=== PATIENT | female | born 1995 | race Two or more races ===

== ENCOUNTER 2018-10-05 11:39 | Emergency (ER) | payer SELFPAY ==
[~2018-10-05] VITALS: Ht 167.6 cm; Wt 59.0 kg
[2018-10-05 11:45] VITALS: Ht 167.6 cm; Wt 59.0 kg
[2018-10-05] MEDS ORDERED: IBUP-1542 PO (13:48)
[2018-10-05] MEDS ORDERED: CEPH-443 PO (13:48)
--- NOTE | 2018-10-05 14:11 | ERD ---
ER Documentation Chief Complaint Chief Complaint Complains of abdominal pain x3 days HPI This is a 22-year-old female with no past medical history the presents to the emergency department complaining of suprapubic cramping that is been present for the past 3 days. The patient indicates the pain is 8 out of 10 in intensity. She is been expressing frequency urgency and dysuria. She went to her primary care physician 2 days ago for evaluation and had blood work performed. She has not received the results. She indicates that she also has missed her menstrual cycle this past month. She states she is normally very regular with her menstrual cycles. She is currently sexually active with one partner being her fianc and denies any abnormal urethral discharge. She said she experienced a tactile fever with shaking and chills in the past 24 hours but has not taken any analgesic or antipyretics. ROS All systems reviewed and are negative except as per history of present illness. Medications Home Meds Active Scripts Cephalexin* (Keflex*) 500 Mg Capsule, 500 MG PO QID for 10 Days, CAP Prov:KAREEM JACKSON MD 10/05/18 Ibuprofen* (Motrin*) 600 Mg Tab, 600 MG PO Q8, #30 TAB Prov:KAREEM JACKSON MD 10/05/18 Allergies Allergies: Coded Allergies: No Known Allergy (Unverified , 10/05/18) PMhx/Soc Medical and Surgical Hx: pt denies Medical Hx, pt denies Surgical Hx History of Surgery: No Anesthesia Reaction: No Hx Neurological Disorder: No Hx Respiratory Disorders: No Hx Cardiac Disorders: No Hx Psychiatric Problems: No Hx Miscellaneous Medical Probl: No Hx Alcohol Use: No Hx Substance Use: No Hx Tobacco Use: No Smoking Status: Never smoker Physical Exam Vitals Vital Signs Date Temp Pulse Resp B/P (MAP) Pulse Ox O2 O2 Flow FiO2 Time Delivery Rate 10/05/18 98.1 89 20 120/70 96 11:45 (87) Physical Exam Constitutional:Well-developed. Well-nourished. HEENT:Normocephalic. Atraumatic.Pupils were equal round reactive to light. Moist mucous membranes.No tonsillar exudates. Neck: No nuchal rigidity. No lymphadenopathy. No posterior cervical spine tenderness or step-offs. Respiratory: Not using accessory muscles of respiration.Lungs were clear to auscultation bilaterally. No rhonchi. No rales. No wheezing. Cardiovascular: Regular rate regular rhythm.No murmurs. No rubs were appreciated.S1, S2 normal. Distal pulses are palpable 2+ bilaterally. GI: Abdomen was soft. Suprapubic tenderness. Non Distended. No pulsatile abdominal masses or bruits. No rebound. No guarding. Bowel sounds were present and normal. Muscle skeletal: Full range of motion of both the upper and lower extremities bilaterally.Normal muscle tone.No assymetrical calf tenderness or swelling. Skin: No petechia, no purpura. No lesions on the palms or the soles of the feet. No maculopapular rash. NEURO: Patient was alert, awake, orientated x3.No facial droop. Gait observed and normal with no ataxia.Speech had regular rate and rhythm. No focal neurological deficits. Result Diagram: 10/05/18 1259 10/05/18 1259 Results 24 hrs Laboratory Tests Test 10/05/18 12:40 10/05/18 12:54 10/05/18 12:59 Urine Color YELLOW Urine Clarity CLOUDY Urine pH 6.0 Urine Specific [place] 1.031 Urine Ketones 1+ mg/dL Urine Nitrite POSITIVE mg/dL Urine Bilirubin NEGATIVE mg/dL Urine Urobilinogen 1+ mg/dL Urine Leukocyte Esterase 2+ Evans/ul Urine Microscopic RBC 14 /HPF Urine Microscopic WBC 18 /HPF Urine Squamous Epithelial Cells MODERATE /HPF Urine Bacteria FEW /HPF Urine Mucus MODERATE /HPF Urine Hemoglobin NEGATIVE mg/dL Urine Glucose NEGATIVE mg/dL Urine Total Protein 1+ mg/dl POC Beta HCG, Qualitative NEGATIVE White Blood Count 10.7 10^3/ul Red Blood Count 4.80 10^6/ul Hemoglobin 15.1 g/dl Hematocrit 42.7 % Mean Corpuscular Volume 89.0 fl Mean Corpuscular Hemoglobin 31.5 pg Mean Corpuscular 35.4 g/dl Hemoglobin Concent Red Cell Distribution Width 11.9 % Platelet Count 284 10^3/UL Mean Platelet Volume 10.7 fl Immature Granulocytes % 0.300 % Neutrophils % 72.9 % Lymphocytes % 20.4 % Monocytes % 5.6 % Eosinophils % 0.4 % Basophils % 0.4 % Nucleated Red Blood Cells % 0.0 /100WBC Immature Granulocytes # 0.030 10^3/ul Neutrophils # 7.8 10^3/ul Lymphocytes # 2.2 10^3/ul Monocytes # 0.6 10^3/ul Eosinophils # 0.0 10^3/ul Basophils # 0.0 10^3/ul Nucleated Red Blood Cells # 0.0 10^3/ul Sodium Level 142 mmol/L Potassium Level 4.6 mmol/L Chloride Level 104 mmol/L Carbon Dioxide Level 25 mmol/L Anion Gap 13 Blood Urea Nitrogen 18 mg/dl Creatinine 0.64 mg/dl Est Glomerular Filtrat > 60 mL/min Rate mL/min Glucose Level 92 mg/dl Calcium Level 9.8 mg/dl Beta HCG, Quantitative < 2.4 mIU/ml Procedures/MDM This is a very pleasant 22-year-old female presented to the emergency department with suprapubic tenderness. The patient is currently sexually active but had no risk factors for STD exposure she states she follows up regularly with her primary care physician and has only been sexually active with one partner for the past 5 years. She had a recent Pap smear that was found to be normal and STD checking that was also normal. I did obtain ancillary laboratory and there is no leukocytosis no electrolyte abnormalities but the patient did have a significant urinary tract infection. A pelvic ultrasound was performed and reviewed by myself the radiologist. There is no evidence of ovarian torsion or ectopic . Both urine and serum test were negative. The patient felt comfortable being discharged home with Motrin and Keflex to treat her urinary tract infection. The patient was discharged home in fair condition. They were instructed to return to the emergency department at any time if there was any worsening of their condition. The patient stated they would follow up with their PCP in the next 24-48 hours to initiate a suitable medication regimen under the care of their PCP as well as to allow their PCP to monitor any drug reactions. The patient was discharged home with prescriptions after they gave informed consent to the new medication. They were also fully informed by myself on the adverse effects and adverse drug interactions in order to provide adequate safeguards to prevent possible adverse reactions to medications. Departure Diagnosis: Primary Impression: Pyelonephritis Condition: Fair Patient Instructions: Pyelonephritis, Female (Adult) KAREEM JACKSON MD Oct 05, 2018 14:11
== END 2018-10-05 14:07 | disposition home or self-care (01) ==
LOC: FTE 11:39
DX: N12 Tubulo-interstitial nephritis, not specified as acute or chronic (principal); R10.2 Pelvic and perineal pain
CPT/HCPCS: 76856; 80048; 81001; 81025; 84702; 85025; 86850; 86900; 86901; 87086

== ENCOUNTER 2019-03-06 17:45 | Emergency (ER) | payer SELFPAY ==
[~2019-03-06] VITALS: Ht 157.5 cm; Wt 64.5 kg
[~2019-03-06 17:45] MED LIST: CEPH-443 PO; IBUP-1542 PO
[2019-03-06 17:50] VITALS: Ht 157.5 cm; Wt 64.5 kg
--- NOTE | 2019-03-06 20:22 | ERD ---
ER Documentation Chief Complaint Chief Complaint PELVIC PAIN DENIES VAG BLEED 9 WEEKS PREG HPI 23-year-old female presents with intermittent lower pelvic pain for last 2 days. She had some bleeding initially 2 weeks ago and was told that her appeared normal. She had a follow-up ultrasound last week and was told that the y only saw sac. She does not recall given any follow-up. She is here for second opinion for some intermittent pain. She is a G1 para 0. ROS All systems reviewed and are negative except as per history of present illness. Medications Home Meds Active Scripts Cephalexin* (Keflex*) 500 Mg Capsule, 500 MG PO QID for 10 Days, CAP Prov:KAREEM JACKSON MD 10/05/18 Ibuprofen* (Motrin*) 600 Mg Tab, 600 MG PO Q8, #30 TAB Prov:KAREEM JACKSON MD 10/05/18 Allergies Allergies: Coded Allergies: No Known Allergy (Unverified , 10/05/18) PMhx/Soc History of Surgery: No Anesthesia Reaction: No Hx Neurological Disorder: No Hx Respiratory Disorders: No Hx Cardiac Disorders: No Hx Psychiatric Problems: No Hx Miscellaneous Medical Probl: No Hx Alcohol Use: No Hx Substance Use: No Hx Tobacco Use: No FmHx Family History: No diabetes, No coronary disease, No other Physical Exam Vitals Vital Signs Date Temp Pulse Resp B/P (MAP) Pulse Ox O2 O2 Flow FiO2 Time Delivery Rate 03/06/19 98.1 71 18 112/60 99 17:50 (77) Physical Exam Const: No acute distress Head: Atraumatic Eyes: Normal Conjunctiva ENT: Normal External Ears, Nose and Mouth. Neck: Full range of motion. No meningismus. Resp: Clear to auscultation bilaterally Cardio: Regular rate and rhythm, no murmurs Abd: Soft, non tender, non distended. Normal bowel sounds Skin: No petechiae or rashes Back: No midline or flank tenderness Ext: No cyanosis, or edema Neur: Awake and alert Psych: Normal Mood and Affect Result Diagram: 03/06/19 8946 Results 24 hrs Laboratory Tests Test 03/06/19 18:46 White Blood Count 8.7 10^3/ul Red Blood Count 4.36 10^6/ul Hemoglobin 13.7 g/dl Hematocrit 38.5 % Mean Corpuscular Volume 88.3 fl Mean Corpuscular Hemoglobin 31.4 pg Mean Corpuscular Hemoglobin Concent 35.6 g/dl Red Cell Distribution Width 11.6 % Platelet Count 291 10^3/UL Mean Platelet Volume 10.1 fl Immature Granulocytes % 0.500 % Neutrophils % 63.7 % Lymphocytes % 27.2 % Monocytes % 6.4 % Eosinophils % 1.6 % Basophils % 0.6 % Nucleated Red Blood Cells % 0.0 /100WBC Immature Granulocytes # 0.040 10^3/ul Neutrophils # 5.5 10^3/ul Lymphocytes # 2.4 10^3/ul Monocytes # 0.6 10^3/ul Eosinophils # 0.1 10^3/ul Basophils # 0.1 10^3/ul Nucleated Red Blood Cells # 0.0 10^3/ul Urine Color YELLOW Urine Clarity SLIGHTLY CLOUDY Urine pH 8.0 Urine Specific [place] 1.006 Urine Ketones NEGATIVE mg/dL Urine Nitrite NEGATIVE mg/dL Urine Bilirubin NEGATIVE mg/dL Urine Urobilinogen NEGATIVE mg/dL Urine Leukocyte Esterase TRACE Evans/ul Urine Microscopic RBC 2 /HPF Urine Microscopic WBC 3 /HPF Urine Squamous Epithelial Cells FEW /HPF Urine Hemoglobin NEGATIVE mg/dL Urine Glucose NEGATIVE mg/dL Urine Total Protein NEGATIVE mg/dl Beta HCG, Quantitative 00548.0 mIU/ml Procedures/MDM Quantitative hCG is 25,182. CBC normal. Urine shows no significant abnormality except for trace leukocytes. AMENDMENT: 03/06/2019 7:53:35 PM [place] Sheppard M.d 1. Single intrauterine with crown rump length of 7.5 mm without heart rate detected, compatible with failed early . PROCEDURE: US OB 1st trimester CLINICAL INDICATION: Pain, no FHTs? TECHNIQUE: Multiple transabdominal and transvaginal sonographic images of the pelvis were obtained. COMPARISON: None for this . FINDINGS: The uterus is anteverted in position. There is a single intrauterine with a crown rump length of 7.5 mm, which is compatible with a 6 weeks 5 days gestational age. No heart rate identified by M-mode or color-flow imaging. The cervix is closed. There is flow in the bilateral ovaries. Over measures 3.5 x 1.9 x 1.8 cm, apparent right corpus luteal cyst. The left ovary measures 2.7 x 2.2 x 1.6 cm. IMPRESSION: 1. Single intrauterine with crown rump length of 7.5 mm without heart rate detected, compatible with early demise. RPTAT: GG Physician Fady Date Time Electronically viewed and signed by Physician Fady on 03/06/2019 19:54 Results were given to patient. 23-year-old female presents with signs and symptoms of likely missed . Ectopic and early normal considered but examination suggest otherwise. She has no current signs or symptoms suggest ectopic , surgical abdomen. She is well- appearing. She has no active bleeding. She will be given copies of reports with instructions to follow-up with primary doctor for further motion treatment and possible D&C. She is advised to return for fevers, bleeding, pain, new worsening symptoms. The patient was stable with no new complaints during the ER course. Clinically, there is no current evidence to suggest meningitis, sepsis, acute abdomen, pneumonia, stroke, acute coronary syndrome, pulmonary embolism, aortic dissection or any other emergent condition appearing to require further evaluation or hospitalization. Patient counseled regarding my diagnostic impression and care plan. Prior to discharge all questions answered. Pt agrees with treatment plan and understands strict return precautions. Pt is instructed to follow up with primary care provider within 24-48 hours. Precautionary instructions provided including instructions to return to the ER if not improving or for any worsening or changing symptoms or concerns. Disclaimer: Inadvertent spelling and grammatical errors are likely due to EHR/dictation software use and do not reflect on the overall quality of patient care. Also, please note that the electronic time recorded on this note does not necessarily reflect the actual time of the patient encounter. Departure Diagnosis: Primary Impression: Threatened in early Additional Impression: Pelvic pain complicating Trimester: first trimester Qualified Codes: O26.891 - Other specified related conditions, first trimester; R10.2 - Pelvic and perineal pain Condition: Stable Patient Instructions: Missed Miscarriage, Abdominal Pain, Early Additional Instructions: Ultrasound suggests possible failed . Recommend follow-up with OB for further evaluation and treatment and comparison of hormone levels. Recheck for bleeding, pain, fevers, new worsening symptoms. STEVE APRKER MD Mar 06, 2019 20:22
[2019-03-06 20:25] VITALS: BP 115/68; PULSE 75; RESP 18
== END 2019-03-06 20:25 | disposition home or self-care (01) ==
LOC: FTE 17:45
DX: O20.0 Threatened abortion (principal); O26.891 Other specified pregnancy related conditions, first trimester; R10.2 Pelvic and perineal pain; Z3A.08 8 weeks gestation of pregnancy
CPT/HCPCS: 36415; 76801; 76817; 81001; 84702; 85025